=== PATIENT | female | born 1970 | race Caucasian/White ===

== ENCOUNTER 2022-01-18 11:28 | Outpatient (CLI) | payer BC, MEDICAID, SELFPAY ==
--- NOTE | 2022-01-18 11:49 | XR_ITS ---
WS: [id number] Right shoulder, 3 views, 01/18/2022 Clinical Data: shoulder injjry Comparison: None. Findings: No fractures or dislocations are seen. The AC joint is normal. The adjacent right clavicle, right sca pula and ribs are normal. The soft tissues are unremarkable. There are calcifications overlying the greater tuberosity which probably represent calcific bursitis or tendinitis. XR/XR shoulder RT min 2V* [id number] Impression: Right shoulder calcific bursitis and/or tendinitis.
--- NOTE | 2022-01-18 11:49 | XR_ITS ---
WS: [id number] Right hand, 3 views, 01/18/2022 Clinical Data: hand injry Comparison: None. Findings: No fractures or dislocations are seen. The soft tissues are unremarkable. The joint space s are normal XR/XR hand RT min 3V* [id number] Impression: Negative right hand.
--- NOTE | 2022-01-18 11:49 | XR_ITS ---
WS: [id number] Right wrist, 3 views, 01/18/2022 Clinical Data: wrist injury Comparison: None. Findings: No fractures or dislocations are seen. The carpal bones are intact. There is no soft tissue swelling. The distal radius and ulna are not remarkable. XR/XR wrist RT min 3V* [id number] Impression: Negative right wrist.
== END 2022-01-18 11:29 | disposition home or self-care (01) ==
PROVIDERS: Visit Provider Emergency Medicine
DX: S69.91XA Unspecified injury of right wrist, hand and finger(s), initial encounter (principal); S49.91XA Unspecified injury of right shoulder and upper arm, initial encounter; X58.XXXA Exposure to other specified factors, initial encounter
CPT/HCPCS: 73030; 73110; 73130